=== PATIENT | male | born 1995 | race African-American/Black ===

== ENCOUNTER 2022-07-21 18:31 | Inpatient (IN) | payer OTHER ==
[~2022-07-21] VITALS: Ht 182.9 cm; Wt 109.0 kg
[2022-07-21] MEDS ORDERED: dilTIAZem 25 MG/5 ML VIAL IV ONE ×2 (18:43→18:45)
[2022-07-21] MEDS ORDERED: SODIUM CHLORIDE 0.9% 1,000 ML IV ONE (19:15)
[2022-07-21] MEDS ORDERED: ADENOSINE 6 MG/2 ML INJ IV ONE ×2 (19:15)
[2022-07-21] MEDS ORDERED: ASPirin 81 mg TAB PO ONE (19:15)
[2022-07-21] MEDS ORDERED: SODIUM CHLORIDE 0.9% 1,000 ML IVB ONE (19:15)
[2022-07-21 19:48] LABS: Basophils # (auto) 0.1 10 ^3/uL (0-0.2); Basophils % (auto) 0.4 % (0.0-2.0); Eosinophils # (auto) 0 10 ^3/uL (0-0.8); Eosinophils % (auto) 0.1 % (0.0-7.0); Hematocrit 46.2 % (41.0-53.0); Hemoglobin 15.5 g/dL (13.5-17.5); Lymphocytes # (auto) 1.2 10 ^3/uL (0.4-5.4); Lymphocytes % (auto) 5.9 % (10.0-50.0); Mean Corpuscular Hemoglobin 30.9 pg (28.0-32.0); Mean Corpuscular Hgb Conc. 33.6 g/dL (32.0-36.0); Monocytes # (auto) 0.9 10 ^3/uL (0-1.3); Monocytes % (auto) 4.1 % (0.0-12.0); Neutrophils # (auto) 18.7 10 ^3/uL (1.6-8.6); Neutrophils % (auto) 89.5 % (37.0-80.0); Nucleated Red Blood Cells % 0.2 %; Red Blood Cells 5.02 10^6/uL (4.5-5.90); Red Cell Distribution Width 12.9 % (11.8-14.3); White Blood Cell 20.9 10^3/uL (4.4-10.8)
[2022-07-21 20:18] LABS: Albumin 4.3 g/dL (3.4-5.0); BUN/Creatinine Ratio 7.9; Calcium 9.9 mg/dL (8.5-10.1); Magnesium 1.8 mg/dL (1.6-2.6); Potassium 3.5 mmol/L (3.5-5.1)
[2022-07-21 20:33] LABS: INR 0.96 (0.9-1.15); Partial Thromboplastin Time 25.1 sec (24.6-33.4)
[2022-07-21 20:37] LABS: Urine Bacteria FEW /hpf (None Seen); Urine Blood Negative /uL (Negative); Urine Hyaline Cast FEW /lpf (0 - 2); Urine Mucus FEW (None Seen); Urine Specific Gravity 1.008 (1.001-1.035); Urine WBC 1 /hpf (0 - 3)
[2022-07-21] MEDS ORDERED: ACETAMINOPHEN 325 MG TAB PO PRN (22:00)
[2022-07-21] MEDS ORDERED: TEMAZEPAM 15 MG CAP PO PRN (22:00)
[2022-07-21] MEDS ORDERED: MORPHINE SULFATE INJ 2 MG/ml SYRG IV PRN (22:00)
[2022-07-21] MEDS ORDERED: ONDANSETRON HCL 4 MG/2 ML VIAL IV PRN (22:00)
[2022-07-21] MEDS ORDERED: ATORVASTATIN 20 MG TAB PO SCH (22:00)
[2022-07-21] MEDS ORDERED: cefTRIAXone 1GM/50ML D5W 50 ML IV ONE (22:00)
[2022-07-21] MEDS ORDERED: NITROGLYCERIN 0.4 MG SL TAB SL PRN (22:00)
[2022-07-22 05:58] LABS: Basophils # (auto) 0 10 ^3/uL (0-0.2); Basophils % (auto) 0.2 % (0.0-2.0); Eosinophils # (auto) 0 10 ^3/uL (0-0.8); Eosinophils % (auto) 0.3 % (0.0-7.0); Hematocrit 41.6 % (41.0-53.0); Hemoglobin 13.8 g/dL (13.5-17.5); Lymphocytes # (auto) 2.7 10 ^3/uL (0.4-5.4); Lymphocytes % (auto) 23.3 % (10.0-50.0); Mean Corpuscular Hgb Conc. 33.1 g/dL (32.0-36.0); Mean Corpuscular Volume 93.5 fL (80.0-100.0); Monocytes # (auto) 1.1 10 ^3/uL (0-1.3); Neutrophils # (auto) 7.9 10 ^3/uL (1.6-8.6); Neutrophils % (auto) 67.2 % (37.0-80.0); Nucleated Red Blood Cells % 0.1 %; Red Blood Cells 4.45 10^6/uL (4.5-5.90); White Blood Cell 11.7 10^3/uL (4.4-10.8)
[2022-07-22 06:17] LABS: Calcium 9.3 mg/dL (8.5-10.1); Potassium 3.9 mmol/L (3.5-5.1)
[2022-07-22 06:22] LABS: BUN/Creatinine Ratio 11.2
[2022-07-22] MEDS ORDERED: MAGNESIUM SULFATE 1GM/100ML 100 ML IV ONE (09:30)
[2022-07-22 10:00] VITALS: BP 114/81
[2022-07-22] MEDS ORDERED: dilTIAZem 120MG ER CAP PO SCH (10:00)
[2022-07-22] MEDS ORDERED: ASPirin 81 mg TAB PO SCH (10:00)
[2022-07-22] MEDS ORDERED: DILT120C12 PO (11:35)
[2022-07-22] MEDS ORDERED: MAGN241.4 PO (11:35)
[2022-07-22] MEDS ORDERED: cefTRIAXone 1GM/50ML D5W 50 ML IV SCH (22:00)
[2022-07-23] MEDS ORDERED: MAGNESIUM OXIDE 400 MG TAB PO SCH (10:00)
== END 2022-07-22 11:50 | disposition home or self-care (01) | DRG 201 ==
LOC: ER 18:33 → TELE 21:52
PROVIDERS: ADMIT Nurse Practitioner; ATTEND Internal Medicine
DX: I47.1 Supraventricular tachycardia (principal); N17.0 Acute kidney failure with tubular necrosis; E66.9 Obesity, unspecified; E83.42 Hypomagnesemia; R65.10 Systemic inflammatory response syndrome (SIRS) of non-infectious origin without acute organ dysfunction; N39.0 Urinary tract infection, site not specified; Z20.822 Contact with and (suspected) exposure to COVID-19; Z68.32 Body mass index [BMI] 32.0-32.9, adult; I20.9 Angina pectoris, unspecified
CPT/HCPCS: 36415; 71045; 80048; 80053; 81001; 83735; 84443; 84484; 85025; 85379; 85610; 85730; 87040; 87426; 93005; 93306; 96361; 96365; 96367; 96375; G0378; J0153; J0696

== ENCOUNTER 2022-07-23 03:19 | Inpatient (IN) | payer OTHER ==
[~2022-07-23] VITALS: Ht 182.9 cm; Wt 112.8 kg
[~2022-07-23 03:19] MED LIST: DILT120C12 PO; MAGN241.4 PO
[2022-07-23] MEDS ORDERED: SODIUM CHLORIDE 0.9% 1,000 ML IV ONE (04:45)
[2022-07-23] MEDS ORDERED: CEFEPIME 1GM/ 50ML 50 ML IV ONE ×2 (04:45→12:30)
[2022-07-23] MEDS ORDERED: VANCOMYCIN 1GM/250ML 250 ML IV ONE ×2 (04:45→11:15)
[2022-07-23 06:51] LABS: Basophils # (auto) 0 10 ^3/uL (0-0.2); Basophils % (auto) 0.4 % (0.0-2.0); Eosinophils # (auto) 0.2 10 ^3/uL (0-0.8); Eosinophils % (auto) 1.7 % (0.0-7.0); Hematocrit 43.5 % (41.0-53.0); Lymphocytes # (auto) 2.6 10 ^3/uL (0.4-5.4); Lymphocytes % (auto) 28.6 % (10.0-50.0); Mean Corpuscular Hemoglobin 32.1 pg (28.0-32.0); Mean Corpuscular Hgb Conc. 34.4 g/dL (32.0-36.0); Mean Corpuscular Volume 93.3 fL (80.0-100.0); Monocytes # (auto) 0.8 10 ^3/uL (0-1.3); Monocytes % (auto) 8.3 % (0.0-12.0); Neutrophils # (auto) 5.6 10 ^3/uL (1.6-8.6); Red Blood Cells 4.66 10^6/uL (4.5-5.90); Red Cell Distribution Width 12.7 % (11.8-14.3); White Blood Cell 9.2 10^3/uL (4.4-10.8)
[2022-07-23 06:56] LABS: Albumin 4.2 g/dL (3.4-5.0); BUN/Creatinine Ratio 12.4; Calcium 9.5 mg/dL (8.5-10.1); Magnesium 2.2 mg/dL (1.6-2.6)
[2022-07-23 06:59] LABS: Bilirubin, Total 1.4 mg/dL (0.2-1.0); Phosphorus 3.1 mg/dL (2.5-4.90); Total Protein 7.9 g/dL (6.4-8.2)
[2022-07-23 07:26] LABS: INR 0.97 (0.9-1.15)
[2022-07-23] MEDS ORDERED: VANCOMYCIN PER PHARMACY 0 MG IV SCH (10:45)
[2022-07-23] MEDS: VANCOMYCIN 1GM/250ML 250 ML IV SCH ×2 (16:45→21:41)
[2022-07-23 18:23] LABS: Urine Blood Negative /uL (Negative); Urine Specific Gravity 1.011 (1.001-1.035)
[2022-07-24 01:04] VITALS: BP 128/74
[2022-07-24] MEDS: VANCOMYCIN 1GM/250ML 250 ML IV SCH (03:30)
[2022-07-24 05:00] VITALS: BP 118/70
[2022-07-24 06:22] LABS: Basophils # (auto) 0 10 ^3/uL (0-0.2); Basophils % (auto) 0.3 % (0.0-2.0); Eosinophils # (auto) 0.2 10 ^3/uL (0-0.8); Eosinophils % (auto) 2.1 % (0.0-7.0); Hematocrit 41.5 % (41.0-53.0); Hemoglobin 14.2 g/dL (13.5-17.5); Lymphocytes # (auto) 3.2 10 ^3/uL (0.4-5.4); Lymphocytes % (auto) 30.9 % (10.0-50.0); Mean Corpuscular Hemoglobin 31.6 pg (28.0-32.0); Mean Corpuscular Hgb Conc. 34.1 g/dL (32.0-36.0); Mean Corpuscular Volume 92.7 fL (80.0-100.0); Neutrophils # (auto) 5.9 10 ^3/uL (1.6-8.6); Neutrophils % (auto) 56.7 % (37.0-80.0); Nucleated Red Blood Cells % 0.1 %; Red Blood Cells 4.48 10^6/uL (4.5-5.90); Red Cell Distribution Width 12.3 % (11.8-14.3); White Blood Cell 10.4 10^3/uL (4.4-10.8)
[2022-07-24 06:31] LABS: Albumin 3.9 g/dL (3.4-5.0); Calcium 9.4 mg/dL (8.5-10.1)
[2022-07-24 06:37] LABS: Bilirubin, Total 1.1 mg/dL (0.2-1.0); Potassium 3.7 mmol/L (3.5-5.1)
[2022-07-24 07:50] LABS: BUN/Creatinine Ratio 14.7
[2022-07-24 08:25] VITALS: BP 94/53
[2022-07-24 08:37] VITALS: BP 94/53
[2022-07-24 11:23] VITALS: BP 94/53
[2022-07-24 12:30] VITALS: BP 115/85
== END 2022-07-24 14:13 | disposition home or self-care (01) | DRG 201 ==
LOC: ER 03:19 → OVERFLOW 10:42 → CENTRAL 23:32
PROVIDERS: ADMIT Registered Nurse; ATTEND Internal Medicine
DX: I47.1 Supraventricular tachycardia (principal); E66.01 Morbid (severe) obesity due to excess calories; N18.9 Chronic kidney disease, unspecified; Z68.33 Body mass index [BMI] 33.0-33.9, adult; Z71.3 Dietary counseling and surveillance; Z20.822 Contact with and (suspected) exposure to COVID-19
CPT/HCPCS: 36415; 71045; 80053; 80202; 81003; 83605; 83690; 83735; 84100; 84484; 85025; 85610; 87040; 87081; 87426; 96365; 96366; 96367; 96375; G0378

== ENCOUNTER 2022-10-19 20:45 | Emergency (ER) | payer OTHER ==
[~2022-10-19] VITALS: Ht 182.9 cm; Wt 113.0 kg
[2022-10-19] MEDS ORDERED: ACETAMINOPHEN 325 MG TAB PO ONE (21:15)
[2022-10-19] MEDS ORDERED: SODIUM CHLORIDE 0.9% 1,000 ML IV ONE (21:15)
[2022-10-19 22:11] LABS: Basophils # (auto) 0.1 10 ^3/uL (0-0.2); Basophils % (auto) 0.4 % (0.0-2.0); Eosinophils # (auto) 0 10 ^3/uL (0-0.8); Eosinophils % (auto) 0.1 % (0.0-7.0); Hematocrit 43.2 % (41.0-53.0); Hemoglobin 14.5 g/dL (13.5-17.5); Lymphocytes # (auto) 1.2 10 ^3/uL (0.4-5.4); Lymphocytes % (auto) 7.1 % (10.0-50.0); Mean Corpuscular Hemoglobin 31.5 pg (28.0-32.0); Mean Corpuscular Hgb Conc. 33.7 g/dL (32.0-36.0); Mean Corpuscular Volume 93.3 fL (80.0-100.0); Monocytes # (auto) 2.9 10 ^3/uL (0-1.3); Monocytes % (auto) 17.1 % (0.0-12.0); Neutrophils # (auto) 12.9 10 ^3/uL (1.6-8.6); Neutrophils % (auto) 75.3 % (37.0-80.0); Nucleated Red Blood Cells % 0.3 %; Red Blood Cells 4.62 10^6/uL (4.5-5.90); Red Cell Distribution Width 12.5 % (11.8-14.3); White Blood Cell 17.1 10^3/uL (4.4-10.8)
[2022-10-19 22:27] LABS: Albumin 3.7 g/dL (3.4-5.0); BUN/Creatinine Ratio 15.8; Calcium 8.9 mg/dL (8.5-10.1); Potassium 3.9 mmol/L (3.5-5.1)
[2022-10-19 22:29] LABS: Bilirubin, Total 1.3 mg/dL (0.2-1.0); Total Protein 7.4 g/dL (6.4-8.2)
[2022-10-20] MEDS ORDERED: DexAMETHasone SOD PHOS 10MG/1ML VIAL INJ IV ONE (01:00)
[2022-10-20] MEDS ORDERED: CLINDAMYCIN 900MG IV 50 ML IV ONE (01:00)
[2022-10-20] MEDS ORDERED: KETOROLAC TROMETH 30 MG/ML 1ML VIAL IV ONE (01:00)
[2022-10-20] MEDS ORDERED: LACTATED RINGER S IV ONE (01:00)
[2022-10-20] MEDS ORDERED: PIPERACILLIN-TAZOB 3.375GM 100 ML IV ONE (01:00)
[2022-10-20] MEDS ORDERED: IOHEXOL 300 MG/ML 100ML BOTTLE IJ ONE (01:19)
[2022-10-20] MEDS ORDERED: AUG875T PO (07:50)
[2022-10-20] MEDS ORDERED: CLIN300C8 PO (07:50)
[2022-10-20 07:52] VITALS: BP 112/71
== END 2022-10-20 07:52 | disposition home or self-care (01) ==
LOC: ER 20:45
DX: J02.9 Acute pharyngitis, unspecified (principal); D72.829 Elevated white blood cell count, unspecified; I88.9 Nonspecific lymphadenitis, unspecified; R06.02 Shortness of breath; R94.31 Abnormal electrocardiogram [ECG] [EKG]; M54.2 Cervicalgia; Z20.822 Contact with and (suspected) exposure to COVID-19; Z88.1 Allergy status to other antibiotic agents
CPT/HCPCS: 36415; 70491; 71045; 80053; 83605; 83690; 83880; 84484; 85025; 87426; 93005; 96361; 96365; 96367; 96375; 99285; J1100; J1885; J2543; J3490; J7030; Q9967

== ENCOUNTER 2024-07-23 02:48 | Inpatient (IN) | payer MEDICAID, OTHER ==
[~2024-07-23] VITALS: Ht 188 cm; Wt 68.2 kg
[~2024-07-23 02:48] MED LIST changes: +AUG875T PO; +CLIN1CAP70 PO
[2024-07-23 03:15] VITALS: PULSE 172; RESP 15; O2SAT 99
[2024-07-23] MEDS: ADENOSINE 6 MG/2 ML INJ IV ONE ×3 (03:20→03:30)
[2024-07-23] MEDS: dilTIAZem 25 MG/5 ML VIAL IV ONE (03:33)
--- NOTE | 2024-07-23 03:33 | ED.PDOC ---
HPI Comments 29-year-old male who came to ER due to shortness of breath. Patient diagnosed to have SVTs ( Jul 2022), and is on diltiazem. Patient was asleep earlier when he woke up suddenly due to sudden onset shortness of breath and palpitations. Patient brought to the ER, the blood pressure of 141/86 mm Hg, tachycardic at 140's and was saturating at 98% on room air. EKG done shows Afib in RVR. Chief Complaint: Shortness of Breath Time Seen by MD: 03:32 Primary Care Provider: KAYCEE Reviewed Notes: Nurses Notes Allergies: Coded Allergies: NO KNOWN ALLERGIES (Unverified , 07/21/22) Home Meds Active Scripts Clindamycin Hcl (Clindamycin Hcl) 300 Mg Cap, 300 MG PO QID for 10 Days, #40 CAP 0 Refills Prov:VICTORIA OSORIO DO 10/20/22 Amoxicillin & Pot Clavulanate (AUGMENTIN TABLET) 875 Mg Tb, 875 MG PO BID for 10 Days, #20 TAB 0 Refills Prov:VICTORIA OSORIO DO 10/20/22 Magnesium Oxide (Mag-Ox) 400 Mg Tb, 400 MG PO BID for 30 Days, #60 TAB 2 Refills Prov:FREDERICK ROACH MD 07/22/22 Diltiazem Hcl (Cardizem La) 120 Mg Cp, 120 MG PO DAILY for 30 Days, #30 CAP 1 Refill Prov:FREDERICK ROACH MD 07/22/22 Information Source: Patient Mode of Arrival: Ambulatory Severity: Moderate Timing: Minutes Duration: Since onset Prehospital treatment: None Quality: Other (Palpitations) Onset: At Rest Cardiac Risk Factors: Other (SVTs) History of: Similar pain in past Associated Signs and Symptoms: SOB, Palpitations Past Medical History Past Medical History (Other): SVTs Surgical History: Denies all surgeries Family History Family History: Reviewed,noncontributory to illness Social History Smoker: Non-Smoker Alcohol: Denies ETOH Use Drugs: Denies Drug Use Lives In: Home Constitutional: denies: chills, diaphoresis, fatigue, fever, malaise, sweats, weakness, others EENTM: denies: blurred vision, double vision, ear bleeding, ear discharge, ear drainage, ear pain, ear ringing, eye pain, eye redness, hearing loss, mouth pain, mouth swelling, nasal discharge, nose bleeding, nose congestion, nose pain, photophobia, tearing, throat pain, throat swelling, voice changes, others Respiratory: reports: SOB at rest; denies: cough, hemoptysis, orthopnea, shortness of breath, SOB with excertion, stridor, wheezing, others Cardiovascular: reports: palpitations; denies: chest pain, dizzy spells, diaphoresis, Dyspnea on exertion, edema, irregular heart beat, left arm pain, lightheadedness, PND, syncope, others Gastrointestinal: denies: abdomen distended, abdominal pain, blood streaked bowels, constipated, diarrhea, dysphagia, difficulty swallowing, hematemesis, melena, nausea, poor appetite, poor fluid intake, rectal bleeding, rectal pain, vomiting, others Genitourinary: denies: burning, dysuria, flank pain, frequency, hematuria, incontinence, penile discharge, penile sore, pain, testicle pain, testicle swelling, urgency, others Neurological: denies: dizziness, fainting, headache, left sided numbness, left sided weakness, numbness, paresthesia, pre-existing deficit, right sided numbness, right sided weakness, seizure, speech problems, tingling, tremors, weakness, others Musculoskeletal: denies: back pain, gout, joint pain, joint swelling, muscle pain, muscle stiffness, neck pain, others Integumetry: denies: bruises, change in color, change in hair/nails, dryness, laceration, lesions, lumps, rash, wounds, others Allergic/Immunocompromised: denies: Difficulty Healing, Frequent Infections, Hives, Itching, others Hematologic/Lymphatic: denies: anemia, blood clots, easy bleeding, easy bruising, swollen glands, others Endocrine: denies: excessive hunger, excessive sweating, excessive thirst, excessive urination, flushing, intolerance to cold, intolerance to heat, unexplained weight gain, unexplained weight loss, others Psychiatric: denies: anxiety, bipolar disorder, depression, hopeless, panic disorder, schizophrenia, sleepless, suicidal, others Physical Exam General Appearance: No Apparent Distress, Normal HEENT: Normal ENT Inspection, Pharynx Normal, TMs Normal Neck: Full Range of Motion, Non-Tender, Normal, Normal Inspection Respiratory: Chest Non-Tender, Lungs Clear, No Accessory Muscle Use, No Respiratory Distress, Normal Breath Sounds Cardiovascular: No Edema, No JVD, No Murmur, No Gallop, Normal Peripheral Pulses, Regular Rate/Rhythm Breast Exam: Deferred Gastrointestinal: No Organomegaly, Non Tender, No Pulsatile Mass, Normal Bowel Sounds, Soft Genitalia: Deferred Pelvic: Deferred Rectal: Deferred Extremities: No calf tenderness, Normal capillary refill, Normal inspection, Normal range of motion, Non-tender, No pedal edema Musculoskeletal : Apperance: Normal Neurologic: Alert, frit coater II-XII nml as Tested, No Motor Deficits, Normal Affect, Normal Mood, No Sensory Deficits Cerebellar Function: Normal Reflexes: Normal Skin: Dry, Normal Color, Warm Lymphatic: No Adenopathy EKG EKG : Pulse Rate (adult): 155 Cardiac Rhythm: Afib Was a procedure done? Was a procedure done?: No CP Differential Dx Differential Diagnosis: A-fib, Angina, Anxiety / Panic Attack, Electrolyte Disorder, Hyperventilation, PSVT, Sinus Tachycardia X-Ray, Labs, Meds, VS Vital Signs Date Time Temp Pulse Resp B/P (MAP) Pulse Ox O2 Delivery O2 Flow Rate FiO2 07/23/24 04:04 112 07/23/24 03:35 145/85 07/23/24 03:35 155 07/23/24 03:33 148 07/23/24 03:20 155 07/23/24 03:01 148 07/23/24 02:48 97.8 148 18 141/89 (106) 99 Lab Test 07/23/24 04:02 07/23/24 03:56 Range/Units Urine Color Pending Urine Clarity Pending Urine pH Pending Urine Specific [place] Pending Urine Protein Pending Urine Ketones Pending Urine Blood Pending Urine Nitrite Pending Urine Bilirubin Pending Urine Urobilinogen Pending Urine Leukocyte Esterase Pending Urine RBC Pending Urine WBC Pending Urine Squamous Epithelial Cells Pending Urine Bacteria Pending Urine Glucose Pending Urine Opiates Screen Pending Urine Fentanyl Screen Pending Urine Barbiturates Screen Pending Urine Phencyclidine Screen Pending Urine Amphetamines Screen Pending Urine Benzodiazepines Screen Pending Urine Cocaine Screen Pending Urine Cannabinoids Screen Pending White Blood Count 9.8 4.4-10.8 10^3/uL Red Blood Count 5.01 4.5-5.90 10^6/uL Hemoglobin 16.2 13.5-17.5 g/dL Hematocrit 46.7 41.0-53.0 % Mean Corpuscular Volume 93.3 80.0-100.0 fL Mean Corpuscular Hemoglobin 32.4 H 28.0-32.0 pg Mean Corpuscular Hemoglobin Concent 34.8 32.0-36.0 g/dL Red Cell Distribution Width 12.7 11.8-14.3 % Platelet Count 296 140-450 10^3/uL Mean Platelet Volume 7.2 6.9-10.8 fL Neutrophils (%) (Auto) 57.5 37.0-80.0 % Lymphocytes (%) (Auto) 30.4 10.0-50.0 % Monocytes (%) (Auto) 8.6 0.0-12.0 % Eosinophils (%) (Auto) 2.5 0.0-7.0 % Basophils (%) (Auto) 1.0 0.0-2.0 % Neutrophils # (Auto) 5.6 1.6-8.6 10 ^3/uL Lymphocytes # (Auto) 3.0 0.4-5.4 10 ^3/uL Monocytes # (Auto) 0.8 0-1.3 10 ^3/uL Eosinophils # (Auto) 0.2 0-0.8 10 ^3/uL Basophils # (Auto) 0.1 0-0.2 10 ^3/uL Nucleated Red Blood Cells 0.1 % Prothrombin Time Pending Prothrombin Time INR Pending Sodium Level Pending Potassium Level Pending Chloride Level Pending Carbon Dioxide Level Pending Anion Gap Pending Blood Urea Nitrogen Pending Creatinine Pending Glomerular Filtration Rate Calc Pending BUN/Creatinine Ratio Pending Serum Glucose Pending Calcium Level Pending Total Bilirubin Pending Aspartate Amino Transferase (AST) Pending Alanine Aminotransferase (ALT) Pending Alkaline Phosphatase Pending Troponin I High Sensitivity Pending Total Protein Pending Albumin Pending Thyroid Stimulating Hormone (TSH) Pending Free Thyroxine (T4) Calculated Pending Plasma/Serum Blood Alcohol Pending Current Medications Medications (Trade) Dose Ordered Sig/Sondra Route Start Time Stop Time Status Last Admin Adenosine (Adenosine) 6 mg ONCE ONCE IV 07/23/24 03:15 07/23/24 03:16 DC 07/23/24 03:20 Diltiazem HCl (Cardizem Injection) 20 mg ONCE ONCE IV 07/23/24 03:30 07/23/24 03:31 DC 07/23/24 03:33 Diltiazem HCl 125 ml @ 5 mls/hr Q24H ONCE IV 07/23/24 03:30 07/24/24 03:29 07/23/24 03:35 Adenosine (Adenosine) 12 mg ONCE ONCE IV 07/23/24 03:30 07/23/24 03:31 DC 07/23/24 03:30 Time of 1ST Reevaluation: 03:27 Reevaluation 1ST: Unchanged Time of 2ND Reevaluation: 04:20 (on diltiazem drip, heart rate improved and symptoms improved) Reevaluation 2ND: Improved Patient Education/Counseling: Diagnosis, Treatment Family Education/Counseling: Diagnosis, Treatment Departure 1 Departure Time of Disposition: 04:20 Impression: Primary Impression: Atrial fibrillation with rapid ventricular response Disposition: ADMITTED INPATIENT Admit to: Tele Condition: Guarded Critical Care Note Critical Care Time?: Yes (35 min-critical care time only) Critical care comment: Total critical care time: Approximately 36 minutes Due to a high probability of clinically significant, life threatening deterioration, the patient required my highest level of preparedness to intervene emergently and I personally spent this critical care time directly and personally managing the patient. This critical care time included obtaining a history; examining the patient; pulse oximetry; ordering and review of studies; arranging urgent treatment with development of a management plan; evaluation of patient's response to treatment; frequent reassessment; and, discussions with other providers. This critical care time was performed to assess and manage the high probability of imminent, life-threatening deterioration that could result in multi-organ failure. It was exclusive of separately billable procedures and treating other patients. Stability Stability form required: No Heart Score Heart Score: Heart Score Response (Comments) Value History Moderate Suspicious 1 EKG Repolarization Disturb 1 Age <45 0 Risk Factors 1 or 2 risk factors 1 Troponin Normal limit 0 Total 3 I personally scribed for GERRI GLORIA MD ([email or web address]) on 07/23/24 at 03:33. Electronically submitted by Denys Esparza ([email or web address]). I personally scribed for GERRI GLORIA MD ([email or web address]) on 07/23/24 at 03:35. Electronically submitted by Denys Esparza ([email or web address]). GERRI GLORIA MD Jul 23, 2024 03:33
[2024-07-23] MEDS: dilTIAZem 125mg/125ml BAG KIT 125 ML IV ONE (03:35)
--- NOTE | 2024-07-23 04:02 | DVH ---
CHEST RADIOGRAPH Indication: chest pain Technique: Single frontal view of the chest was obtained Comparison: XY CHEST PORTABLE on DOS: 10/19/22, CHEST XRAY 1 VIEW on DOS: 07/23/22, CXR1 on DOS: 07/23, CHEST PORTABLE on DOS: 07/21/22, CXRP on DOS: 07/21/22 FINDINGS: Lines and Tubes: None Lungs: No focal consolidation. Pleura: No effusion. No pneumothorax. Cardiomediastinal contours: Unremarkable Bones: No acute osseous abnormality. IMPRESSION: No acute cardiopulmonary disease.
[2024-07-23 04:10] LABS: Basophils # (auto) 0.1 10 ^3/uL (0-0.2); Eosinophils # (auto) 0.2 10 ^3/uL (0-0.8); Eosinophils % (auto) 2.5 % (0.0-7.0); Hematocrit 46.7 % (41.0-53.0); Hemoglobin 16.2 g/dL (13.5-17.5); Lymphocytes % (auto) 30.4 % (10.0-50.0); Mean Corpuscular Hemoglobin 32.4 pg (28.0-32.0); Mean Corpuscular Hgb Conc. 34.8 g/dL (32.0-36.0); Mean Corpuscular Volume 93.3 fL (80.0-100.0); Monocytes # (auto) 0.8 10 ^3/uL (0-1.3); Monocytes % (auto) 8.6 % (0.0-12.0); Neutrophils # (auto) 5.6 10 ^3/uL (1.6-8.6); Neutrophils % (auto) 57.5 % (37.0-80.0); Nucleated Red Blood Cells % 0.1 %; Platelet Count (auto) 296 10^3/uL (140-450); Red Blood Cells 5.01 10^6/uL (4.5-5.90); Red Cell Distribution Width 12.7 % (11.8-14.3); White Blood Cell 9.8 10^3/uL (4.4-10.8)
[2024-07-23 04:19] LABS: Urine Bacteria None Seen /hpf (None Seen)
[2024-07-23 04:24] LABS: INR 0.98 (0.9-1.15); Prothrombin Time 10.4 sec (9.3-11.8)
[2024-07-23 04:29] LABS: Albumin 4.8 g/dL (3.2-4.8); Alkaline Phosphatase 80 U/L (46-116); Anion Gap 9 (5-15); Aspartate Aminotransferase 40 U/L (13-40); BUN/Creatinine Ratio 9.9 (10.0-20.0); Blood Urea Nitrogen 12 mg/dL (9-23); Calcium 10.1 mg/dL (8.7-10.4); Carbon Dioxide 24 mmol/L (20-31); Potassium 3.7 mmol/L (3.5-5.1); Sodium 140 mmol/L (136-145)
[2024-07-23 04:30] LABS: Total Protein 7.6 g/dL (5.7-8.2)
[2024-07-23 04:32] LABS: Urine Blood Negative /uL (Negative); Urine Clarity Clear (Clear); Urine Color Light-Yellow (Yellow); Urine Protein, UAD Negative (Negative); Urine Specific Gravity 1.015 (1.001-1.035); Urine Urobilinogen Normal (Negative); Urine WBC 1 /hpf (0 - 3); Urine pH 5.5 (5.0-9.0)
[2024-07-23 04:37] LABS: Alanine Aminotransferase 90 U/L (7-40); Blood Alcohol < 3.0 mg/dL (<10); Chloride 107 mmol/L (98-107); Glucose 139 mg/dL (74-106)
[2024-07-23 04:43] LABS: Amphetamine Screen, Urine Neg (NEGATIVE); Barbiturate Scree,Urine Neg (NEGATIVE); Benzodiazephine Screen, Urine Neg (NEGATIVE); Cannabinoid Screen, Urine Neg (NEGATIVE); Cocaine Screen, Urine Neg (NEGATIVE); Opiate Scree,Urine Neg (NEGATIVE); Phencyclidine Screen, Urine Neg (NEGATIVE)
[2024-07-23 04:46] LABS: Bilirubin, Total 0.9 mg/dL (0.2-1.0)
[2024-07-23] MEDS ORDERED: MORPHINE SULFATE INJ 2 MG/ml SYRG IV PRN (05:00)
[2024-07-23] MEDS ORDERED: ACETAMINOPHEN 325 MG TAB PO PRN (05:00)
[2024-07-23] MEDS ORDERED: NITROGLYCERIN 0.4 MG SL TAB SL PRN (05:00)
[2024-07-23] MEDS ORDERED: ONDANSETRON HCL 4 MG/2 ML VIAL IV PRN (05:00)
[2024-07-23] MEDS ORDERED: POTASSIUM CHLORIDE 40 MEQ, LIDOCAINE 1% (LOCAL ANESTH.) 4 ML in SODIUM CHL 0.9% 250 ML IV ONE (05:15)
--- NOTE | 2024-07-23 05:19 | DVHHPRES ---
History of Present Illness Resident Creating Document: DONNELL HO RESIDENT History of Present Illness This is a 29 years old male with past medical history of SVT presented to the ED with a chief complaint of shortness of breath and palpitation for 2 hours prior to this admission. According to the patient he woke up from the sleep at 2:30 a.m. with gasping of air and also feeling heart racing which prompted this visit. The patient also mentioned 2 years ago he was admitted in [facility] with SVT. He denies chest pain, dizziness, diaphoresis, abdominal pain, nausea, vomiting, dysuria, cough with sputum, sick contact or any recent traveling. He has no insurance and he is not following with any PCP or manager behavior. Past Medical History SVT Past Surgical History None Family History: None Lives: with Family Past Social History Lives with family Nonsmoker, nonalcoholic and never tried any drugs. Review of Systems Constitutional: No: Fever, Chills, Sweats, Weakness, Malaise, Other Eyes: No: Pain, Vision change, Conjunctivae inflammation, Eyelid inflammation, Other, Redness ENT: No: Ear pain, Ear discharge, Nose pain, Nose discharge, Nose congestion, Mouth pain, Mouth swelling, Throat pain, Throat swelling, Other Respiratory: Shortness of breath; No: Cough, Dry, SOB with excertion, Wheezing, Hemoptysis, Pleuritic Pain, Sputum, Wheezing, Other Cardiovascular: Palpitations; No: Chest Pain, Orthopnea, Paroxysmal Noc. Dyspnea, Edema, Lt Headedness, Other Gastrointestinal: No: Nausea, Vomiting, Abdominal Pain, Diarrhea, Constipation, Melena, Hematochezia, Other Genitourinary: No Dysuria, No Frequency, No Incontinence, No Hematuria, No Retention, No Other Musculoskeletal: No: other, neck pain, shoulder pain, arm pain, back pain, hand pain, leg pain, foot pain Skin: No: Rash, Lesions, Jaundice, Bruising, Other Neurological: No: Weakness, Numbness, Incoordination, Change in speech, Confus ion, Seizures, Other Allergies: Coded Allergies: NO KNOWN ALLERGIES (Unverified , 07/21/22) Medications Current Medications Medications Dose Ordered Sig/Sondra Route Start Time Stop Time Status Last Admin Dose Admin Sodium Chloride 10 ml Q8HR IV 07/23/24 06:00 UNV Ondansetron HCl 4 mg Q4HP PRN IV 07/23/24 05:00 UNV Acetaminophen 650 mg Q6HP PRN PO 07/23/24 05:00 UNV Nitroglycerin 0.4 mg Q5MINP PRN SL 07/23/24 05:00 UNV Morphine Sulfate 2 mg Q30M PRN IV 07/23/24 05:00 UNV Exam Vital Signs Vital Signs Date Time Temp Pulse Resp B/P (MAP) Pulse Ox O2 Delivery O2 Flow Rate FiO2 07/23/24 04:45 115 13 145/92 (109) 96 07/23/24 03:15 Room Air* 0 21 07/23/24 03:15 98.9 98.9 Exam Physical examination: General Appearance: Alert, Oriented X3, Cooperative, No acute distress HEENT: Atraumatic, PERRLA, EOMI, Mucous membrane moist/pink Respiratory: Clear to auscultation, Normal air movement Cardiovascular: Irregular regular rate, Normal S1, Normal S2, No murmurs, no joanie st wall tenderness Abdominal: Normal bowel sounds, Soft, No tenderness, No hepatospenomegaly, No masses Extremities: No clubbing, No cyanosis, No edema, Normal pulses, No tenderness/swelling Skin: No rashes, No breakdown, No significant lesion Neuro: Normal gait, Normal speech, Strength at 5/5 X4 ext, Normal tone, Sensation intact, grossly intact cranial nerves. Psych/Mental Status: Mental status NL, Mood NL Labs/Xrays Labs Test 07/23/24 04:48 07/23/24 04:02 07/23/24 03:56 Range/Units Urine Color Light-yellow Yellow Urine Clarity Clear Clear Urine pH 5.5 5.0-9.0 Urine Specific [place] 1.015 1.001-1.035 Urine Protein Negative Negative Urine Ketones Negative Negative Urine Blood Negative Negative /uL Urine Nitrite Negative Negative Urine Bilirubin Negative Negative Urine Urobilinogen Normal Negative mg/dL Urine Leukocyte Esterase Negative Negative /uL Urine RBC <1 0 - 3 /hpf Urine WBC 1 0 - 3 /hpf Urine Squamous Epithelial Cells Few <5 /hpf Urine Bacteria None seen None Seen /hpf Urine Glucose Normal Normal mg/dL Urine Opiates Screen Neg NEGATIVE Urine Fentanyl Screen Neg NEGATIVE Urine Barbiturates Screen Neg NEGATIVE Urine Phencyclidine Screen Neg NEGATIVE Urine Amphetamines Screen Neg NEGATIVE Urine Benzodiazepines Screen Neg NEGATIVE Urine Cocaine Screen Neg NEGATIVE Urine Cannabinoids Screen Neg NEGATIVE White Blood Count 9.8 4.4-10.8 10^3/uL Red Blood Count 5.01 4.5-5.90 10^6/uL Hemoglobin 16.2 13.5-17.5 g/dL Hematocrit 46.7 41.0-53.0 % Mean Corpuscular Volume 93.3 80.0-100.0 fL Mean Corpuscular Hemoglobin 32.4 H 28.0-32.0 pg Mean Corpuscular Hemoglobin Concent 34.8 32.0-36.0 g/dL Red Cell Distribution Width 12.7 11.8-14.3 % Platelet Count 296 140-450 10^3/uL Mean Platelet Volume 7.2 6.9-10.8 fL Neutrophils (%) (Auto) 57.5 37.0-80.0 % Lymphocytes (%) (Auto) 30.4 10.0-50.0 % Monocytes (%) (Auto) 8.6 0.0-12.0 % Eosinophils (%) (Auto) 2.5 0.0-7.0 % Basophils (%) (Auto) 1.0 0.0-2.0 % Neutrophils # (Auto) 5.6 1.6-8.6 10 ^3/uL Lymphocytes # (Auto) 3.0 0.4-5.4 10 ^3/uL Monocytes # (Auto) 0.8 0-1.3 10 ^3/uL Eosinophils # (Auto) 0.2 0-0.8 10 ^3/uL Basophils # (Auto) 0.1 0-0.2 10 ^3/uL Nucleated Red Blood Cells 0.1 % Prothrombin Time 10.4 9.3-11.8 sec Prothrombin Time INR 0.98 0.9-1.15 Sodium Level 140 136-145 mmol/L Potassium Level 3.7 3.5-5.1 mmol/L Chloride Level 107 98-107 mmol/L Carbon Dioxide Level 24 20-31 mmol/L Anion Gap 9 5-15 Blood Urea Nitrogen 12 9-23 mg/dL Creatinine 1.21 0.700-1.30 mg/dL Glomerular Filtration Rate Calc 82 >90 mL/min BUN/Creatinine Ratio 9.9 L 10.0-20.0 Serum Glucose 139 H 74-106 mg/dL Calcium Level 10.1 8.7-10.4 mg/dL Total Bilirubin 0.9 0.2-1.0 mg/dL Aspartate Amino Transferase (AST) 40 13-40 U/L Alanine Aminotransferase (ALT) 90 H 7-40 U/L Alkaline Phosphatase 80 46-116 U/L Total Protein 7.6 5.7-8.2 g/dL Albumin 4.8 3.2-4.8 g/dL Thyroid Stimulating Hormone (TSH) 4.25 0.55-4.78 uIU/mL Free Thyroxine (T4) Calculated 1.19 0.89-1.76 ng/dL Plasma/Serum Blood Alcohol < 3.0 <10 mg/dL Assessment/Plan Assessment/Plan Assessment and plan: # Atrial fibrillation with rapid ventricular response - IV Diltiazem @5 mg/hr protocol - Admitted the patient in ICU status - Troponins are unremarkable - TSH is normal - Ordered echo and magnesium - IV potassium 40 mEq to keep the potassium above 4 - [id number] score 1 and risk of stroke<2% - Consulted cardiology # Hypertensive heart disease - Patient is on IV diltiazem - Monitor Blood pressure closely. # Transaminitis without hyperbilirubinemia - Monitor CMP # DVT prophylaxis - Lovenox 40 mg sc daily Goal of care discussed with the patient for more than 17 minutes full code Plan of treatment discussed with Dr. Barcenas Plan discussed with: Patient, Other My Orders Orders - DONNELL HO RESIDENT Procedure Category Date Status Time Admit ADMIT 07/23/24 Transmitted 05:00 Code Status CODE 07/23/24 Transmitted 05:00 Sodium Chloride Lock PHA 07/23/24 Logged (Saline Lock Ns) 06:00 Ondansetron Hcl PHA 07/23/24 Logged (Zofran) 05:00 Cardiac DIET 07/23/24 Transmitted Diet-2gna,Lofat,Lochol Breakfast Echo 2d Mode Cardiac US 07/23/24 Logged DOP 05:00 Acetaminophen Tablet PHA 07/23/24 Logged (Tylenol Tablet) 05:00 Nitroglycerin PHA 07/23/24 Logged Sublingual (Ntrostat 05:00 Morphine Sulfate PHA 07/23/24 Logged Injection 05:00 Oxygen By Nasal RT 07/23/24 Transmitted Cannula 05:00 Stat Ekg For Chest BABAR 07/23/24 In Process Pain 05:00 Notify Of Changes BABAR 07/23/24 In Process From Base 05:00 Grants Assistant For [facility] 07/23/24 In Process 24 Hours 05:00 Emergency Dysrhythmia [facility] 07/23/24 In Process Protocol 05:00 Rhythm Strips Once [facility] 07/23/24 In Process Every Shift 05:00 Magnesium LAB 07/23/24 Logged 05:10 Potassium Chloride PHA 07/23/24 Logged (Potassium Chloride). 05:15 Enoxaparin Sodium PHA 07/23/24 Transmitted (Lovenox) 10:00 Date of Service: Jul 23, 2024 Billing Provider: FUAD BARCENAS MD Common Visit Codes: [id number] INP/OBS CARE (HIGH) DONNELL HO RESIDENT Jul 23, 2024 05:19 FUAD BARCENAS MD Jul 23, 2024 21:04
[2024-07-23] MEDS: POTASSIUM CHL 20MEQ/100ML 100 ML IV SCH (05:39)
[2024-07-23] MEDS: SODIUM CHLOR 0.9% PF (SALINE LOCK) 10ML VIAL/SYR IV SCH (06:00)
--- NOTE | 2024-07-23 06:35 | ECG ---
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
--- NOTE | 2024-07-23 06:50 | ECG ---
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
[2024-07-23 08:00] VITALS: PULSE 95; RESP 12; O2SAT 98
[2024-07-23] MEDS: ENOXAPARIN SOD 40 MG/0.4 ML SYRINGE SC SCH (10:01)
[2024-07-23 10:16] LABS: Triglycerides 133 mg/dL (< 150)
[2024-07-23 10:18] LABS: Cholesterol 168 mg/dL (< 200)
[2024-07-23 10:28] LABS: HDL Cholesterol 40 mg/dL (40-59); LDL Cholesterol 114 mg/dL (< 100)
[2024-07-23] MEDS: AMIODARONE 450mg/250ml AE 250 ML IV SCH ×3 (11:51→19:30)
[2024-07-23] MEDS: METOPROLOL SUCCINATE XL 50 MG TAB PO ONE (11:55)
--- NOTE | 2024-07-23 12:01 | DVHCONRES ---
Date Seen: Jul 23, 2024 Resident Creating Document: OSKAR JUAN RESIDENT Referring Physician Dr. Stroud Reason for Consultation AFib History of Present Illness Wilian Sesay is a 29 years old male with PMH of SVT presented to the ED with a chief complaint of shortness of breath and palpitation for 2:30 am on the day of admission. Patient reported that he woke up from sleep at 2:30 a.m. with gasping of air and also feeling heart racing which prompted this visit. The patient also mentioned 2 years ago he was admitted in [facility] with SVT. He denies chest pain, dizziness, diaphoresis, abdominal pain, nausea, vomiting, dysuria, cough with sputum, sick contact or any recent traveling. 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 Past Medical History 1 episode of SVT 1 year ago Past Surgical History Denies Family History: Chronic obstructive pulmonary disease G8 FATHER FH: breast cancer G8 MOTHER FH: lupus G8 MOTHER FHx: bipolar disorder G8 MOTHER Hypertension G8 FATHER Family History Heart disease in father Social History Lives with the . Denies smoking, alcohol and other drug Allergies: Coded Allergies: NO KNOWN ALLERGIES (Unverified , 07/21/22) Home Meds Active Scripts Clindamycin Hcl (Clindamycin Hcl) 300 Mg Cap, 300 MG PO QID for 10 Days, #40 CAP 0 Refills Prov:VICTORIA OSORIO DO 10/20/22 Amoxicillin & Pot Clavulanate (AUGMENTIN TABLET) 875 Mg Tb, 875 MG PO BID for 10 Days, #20 TAB 0 Refills Prov:VICTORIA OSORIO DO 10/20/22 Magnesium Oxide (Mag-Ox) 400 Mg Tb, 400 MG PO BID for 30 Days, #60 TAB 2 Refills Prov:FREDERICK ROACH MD 07/22/22 Diltiazem Hcl (Cardizem La) 120 Mg Cp, 120 MG PO DAILY for 30 Days, #30 CAP 1 Refill Prov:FREDERICK ROACH MD 07/22/22 Current Medications Current Medications Medications (Trade) Dose Ordered Sig/Sondra Route PRN Reason Start Time Stop Time Status Last Admin Sodium Chloride (Saline Lock Ns) 10 ml Q8HR IV 07/23/24 06:00 Ondansetron HCl (Zofran) 4 mg Q4HP PRN IV NAUSEA / VOMITING 07/23/24 05:00 Acetaminophen (Tylenol Tablet) 650 mg Q6HP PRN PO PAIN SCALE 1-3 OR TEMP>100.4 07/23/24 05:00 Nitroglycerin (Ntrostat Sublingual) 0.4 mg Q5MINP PRN SL FOR CHEST PAIN 07/23/24 05:00 Morphine Sulfate 2 mg Q30M PRN IV FOR CHEST PAIN 07/23/24 05:00 Enoxaparin Sodium (Lovenox) 40 mg DAILY SC 07/23/24 10:00 07/23/24 10:01 Potassium Chloride 100 ml @ 50 mls/hr Q2H IV 07/23/24 05:45 07/23/24 09:44 DC 07/23/24 08:13 Amiodarone HCl 250 ml @ 33.333 mls/ hr Q7H30M IV 07/23/24 11:45 07/23/24 17:44 Flecainide Acetate (Tambocor Tablet) 50 mg Q12HR PO 07/23/24 22:00 Metoprolol Succinate (Toprol Xl) 25 mg DAILY PO 07/24/24 10:00 Review of Systems Seen and examined at the bedside. Patient reported improvement in his palpitations since admission, no new complaints reported at this time Vital Signs Vital Signs Date Time Temp Pulse Resp B/P (MAP) Pulse Ox O2 Delivery O2 Flow Rate FiO2 07/23/24 11:00 105/64 07/23/24 10:00 103 14 97 07/23/24 08:00 98.6 98.6 07/23/24 08:00 Room Air* 0 21 Physical Exam Pt is lying on bed General Appearance: Alert, Oriented X3, Cooperative, mild distress HEENT: Atraumatic, Mucous membranes moist/pink Respiratory: Clear to auscultation, Normal air movement, No added sounds Cardiovascular: Irregular regular rate, Normal S1, Normal S2, No murmurs Abdominal: Active bowel sounds, Soft, no distention, no tenderness Extremities: No edema, Normal pulses, No tenderness/swelling Skin: No Significant rash Neuro: Normal speech, sensorimotor deficits none Psych/Mental Status: Mental status NL, Mood NL Nurse was there as sharperone during examination Labs/Diagnostic Data Labs Test 07/23/24 04:48 07/23/24 04:02 07/23/24 03:56 Range/Units Troponin I High Sensitivity 3 L </=54 ng/L Urine Color Light-yellow Yellow Urine Clarity Clear Clear Urine pH 5.5 5.0-9.0 Urine Specific [place] 1.015 1.001-1.035 Urine Protein Negative Negative Urine Ketones Negative Negative Urine Blood Negative Negative /uL Urine Nitrite Negative Negative Urine Bilirubin Negative Negative Urine Urobilinogen Normal Negative mg/dL Urine Leukocyte Esterase Negative Negative /uL Urine RBC <1 0 - 3 /hpf Urine WBC 1 0 - 3 /hpf Urine Squamous Epithelial Cells Few <5 /hpf Urine Bacteria None seen None Seen /hpf Urine Glucose Normal Normal mg/dL Urine Opiates Screen Neg NEGATIVE Urine Fentanyl Screen Neg NEGATIVE Urine Barbiturates Screen Neg NEGATIVE Urine Phencyclidine Screen Neg NEGATIVE Urine Amphetamines Screen Neg NEGATIVE Urine Benzodiazepines Screen Neg NEGATIVE Urine Cocaine Screen Neg NEGATIVE Urine Cannabinoids Screen Neg NEGATIVE White Blood Count 9.8 4.4-10.8 10^3/uL Red Blood Count 5.01 4.5-5.90 10^6/uL Hemoglobin 16.2 13.5-17.5 g/dL Hematocrit 46.7 41.0-53.0 % Mean Corpuscular Volume 93.3 80.0-100.0 fL Mean Corpuscular Hemoglobin 32.4 H 28.0-32.0 pg Mean Corpuscular Hemoglobin Concent 34.8 32.0-36.0 g/dL Red Cell Distribution Width 12.7 11.8-14.3 % Platelet Count 296 140-450 10^3/uL Mean Platelet Volume 7.2 6.9-10.8 fL Neutrophils (%) (Auto) 57.5 37.0-80.0 % Lymphocytes (%) (Auto) 30.4 10.0-50.0 % Monocytes (%) (Auto) 8.6 0.0-12.0 % Eosinophils (%) (Auto) 2.5 0.0-7.0 % Basophils (%) (Auto) 1.0 0.0-2.0 % Neutrophils # (Auto) 5.6 1.6-8.6 10 ^3/uL Lymphocytes # (Auto) 3.0 0.4-5.4 10 ^3/uL Monocytes # (Auto) 0.8 0-1.3 10 ^3/uL Eosinophils # (Auto) 0.2 0-0.8 10 ^3/uL Basophils # (Auto) 0.1 0-0.2 10 ^3/uL Nucleated Red Blood Cells 0.1 % Prothrombin Time 10.4 9.3-11.8 sec Prothrombin Time INR 0.98 0.9-1.15 Sodium Level 140 136-145 mmol/L Potassium Level 3.7 3.5-5.1 mmol/L Chloride Level 107 98-107 mmol/L Carbon Dioxide Level 24 20-31 mmol/L Anion Gap 9 5-15 Blood Urea Nitrogen 12 9-23 mg/dL Creatinine 1.21 0.700-1.30 mg/dL Glomerular Filtration Rate Calc 82 >90 mL/min BUN/Creatinine Ratio 9.9 L 10.0-20.0 Serum Glucose 139 H 74-106 mg/dL Calcium Level 10.1 8.7-10.4 mg/dL Magnesium Level 1.9 1.6-2.6 mg/dL Total Bilirubin 0.9 0.2-1.0 mg/dL Aspartate Amino Transferase (AST) 40 13-40 U/L Alanine Aminotransferase (ALT) 90 H 7-40 U/L Alkaline Phosphatase 80 46-116 U/L B-Type Natriuretic Peptide 2.88 0-100 pg/mL Total Protein 7.6 5.7-8.2 g/dL Albumin 4.8 3.2-4.8 g/dL Triglycerides Level 133 < 150 mg/dL Cholesterol Level 168 < 200 mg/dL LDL Cholesterol 114 H < 100 mg/dL HDL Cholesterol 40 40-59 mg/dL Thyroid Stimulating Hormone (TSH) 4.25 0.55-4.78 uIU/mL Free Thyroxine (T4) Calculated 1.19 0.89-1.76 ng/dL Plasma/Serum Blood Alcohol < 3.0 <10 mg/dL Assessment Paroxysmal AFib with RVR class-IIIA with a secondary hypercoagulable state Transaminitis Plan/Recommendation We will continue with the following plan/recommendations (Dr. Torres): Continue monitoring on telemetry unit, notify if any changes in EKG Echocardiogram to evaluate cardiac function Discontinued Cardizem, started on amiodarone drip along with flecainide 50 mg b.i.d., metoprolol 25 mg along with Eliquis 5mg Risk factor modification Case discussed with Dr Garcia, patient and RN. Plan discussed with: Patient, Spouse Visit Coding Cardiology RES Date of Service: Jul 23, 2024 Billing Provider: ALLISON GACRIA MD Cardiology Common Codes: [id number] INP/OBS CARE (Mod) OSKAR JUAN RESIDENT Jul 23, 2024 12:01
--- NOTE | 2024-07-23 12:59 | DVHPNRES ---
Progress Note Date Seen: Jul 23, 2024 Resident Creating Document: KRANTHI HOOD RESIDENT Medical Necessity Reason Pt with a Central, PICC or Fol: No Subjective Review of Systems 29 year Male patient with past medical history of SVT presented with complaint of shortness of breath associated feeling of suffocation palpitation started 0330 in the morning.. He was found to be on AFib with RVR and was started on diltiazem drip. Currently patient is asymptomatic, mentioning of occasional skipping heartbeat, heart rate is 110s to 120s on diltiazem. Later diltiazem was discontinued by the training administrator and patient was started on amiodarone by the training administrator. ROS Constitutional: No: Fever, Chills, Sweats, Weakness, Malaise, Other Eyes: No: Pain, Vision change, Conjunctivae inflammation, Eyelid inflammation, Other, Redness ENT: No: Ear pain, Ear discharge, Nose pain, Nose discharge, Nose congestion, Mouth pain, Mouth swelling, Throat pain, Throat swelling, Other Respiratory: No: Cough, Dry, Shortness of breath, SOB with excertion, Wheezing, Hemoptysis, Pleuritic Pain, Sputum, Wheezing, Other Cardiovascular: Palpitations No: Chest Pain, Palpitations, Orthopnea, Paroxysmal Noc. Dyspnea, Edema, Lt Headedness, Other Gastrointestinal: No: Nausea, Vomiting, Abdominal Pain, Diarrhea, Constipation, Melena, Hematochezia, Other Musculoskeletal: No: other, neck pain, shoulder pain, arm pain, back pain, hand pain, leg pain, foot pain Neurological:; No: Weakness, Numbness, Incoordination, Change in speech, Confusion, Seizures Objective vital signs Vital Sign Date Time Temp Pulse Resp B/P (MAP) Pulse Ox O2 Delivery O2 Flow Rate FiO2 07/23/24 11:55 99 104/67 07/23/24 10:00 14 97 07/23/24 08:00 98.6 98.6 07/23/24 08:00 Room Air* 0 21 Total Intake and Output 07/22/24 07/22/24 07/23/24 15:00 23:00 07:00 Intake Total 79.66 ml Balance 79.66 ml medications Current Medications Medications Dose Ordered Sig/Sondra Route Start Time Stop Time Status Last Admin Dose Admin Sodium Chloride 10 ml Q8HR IV 07/23/24 06:00 Ondansetron HCl 4 mg Q4HP PRN IV 07/23/24 05:00 Acetaminophen 650 mg Q6HP PRN PO 07/23/24 05:00 Nitroglycerin 0.4 mg Q5MINP PRN SL 07/23/24 05:00 Morphine Sulfate 2 mg Q30M PRN IV 07/23/24 05:00 Amiodarone HCl 250 ml @ 33.333 mls/ hr Q7H30M IV 07/23/24 11:45 07/23/24 17:44 07/23/24 11:51 33.333 MLS/HR Flecainide Acetate 50 mg Q12HR PO 07/23/24 22:00 Metoprolol Succinate 25 mg DAILY PO 07/24/24 10:00 Apixaban 5 mg BID PO 07/23/24 22:00 Examination Examination General Appearance: Alert, Oriented X3, Cooperative, No acute distress HEENT: EOMI Respiratory: Clear to auscultation, Normal air movement Cardiovascular: Irregular heart rate, Normal S1, Normal S2 Abdominal: Normal bowel sounds Extremities: No cyanosis, No edema, Normal pulses, No tenderness/swelling Skin: No rashes, No breakdown Neuro: Normal speech and tone laboratory and microbiology Laboratory Tests 07/23/24 03:56 Test 07/23/24 03:56 Range/Units Serum Glucose 139 H 74-106 mg/dL Labs and/or images reviewed: Labs reviewed by me, Image(s) reviewed by me Problem List/Assessment/Plan Problem List/Assessment/Plan Assessment/plan # atrial fibrillation with RVR, questionable new onset questionable paroxysmal, history of SVT -currently heart rate 110 to 120s on diltiazem drip -cardiology on board -echocardiogram -magnesium greater than two, potassium greater than four -Later diltiazem was discontinued by the training administrator and patient was started on amiodarone by the training administrator. -pt also started on metoprolol, eliquis 5mg BID -CHADS-VASc score is 0, discussed with the training administrator, as per training administrator continue with Eliquis -planned to be discharged on flecainide by the training administrator -echo pending #? Obstructive sleep apnea Outpatient follow up with sleep doctor for sleep study # history of SVT Code status discussed with the patient for greater than 21 minutes, full code Case discussion with Dr. Schmitt Plan discussed with: Patient, Other Date of Service: Jul 23, 2024 Billing Provider: ARNAUD SCHMITT MD Common Visit Codes: [id number] INP/OBS CARE(HIGH) KRANTHI HOOD RESIDENT Jul 23, 2024 12:59 ARNAUD SCHMITT MD Jul 24, 2024 17:32
[2024-07-23] MEDS: FLECAINIDE ACETATE 50 MG TAB PO ONE (13:11)
--- NOTE | 2024-07-23 13:52 | ECG ---
[facility] Test Date: 2024-07-23 Test Time: 04:04:33 Pat Name: KAYLYN GIBBONS Department: er Room: 0251T Gender: M [employer]: [id number] : 1995 Requested By: GERRI GLORIA Order Number: [id number] Reading MD: Nick Rosario Measurements Intervals [place] Rate: 112 P: 0 SD: 0 QRS: 42 QRSD: 106 T: 3 QT: 323 QTc: 441 Interpretive Statements Atrial fibrillation Electronically Signed On 07-23-2024 16:47:29 PST by Nick Rosario Please click the below link to view image of tracing.
[2024-07-23 15:40] VITALS: BP 115/67; PULSE 99; RESP 16; TEMP 98.2; O2SAT 98
[2024-07-23 17:02] VITALS: BP 106/74; PULSE 101; RESP 15; TEMP 98; O2SAT 98
--- NOTE | 2024-07-23 19:59 | DVHSR ---
APPROVED REPORT EXAM: LIMITED Two-dimensional and M-mode echocardiogram with Doppler and color Doppler. Blood Pressure: 103/57 mmHg INDICATION Atrial Fibrillation W/ RVR RISK FACTORS Obesity: Height: 6' 2", Weight: 288 DIMENSIONS LVDd5.2 (3.8-5.7cm)LA (2D)3.8 (1.9-4.0cm)Aortic Root3.6 (2.0-3.7cm) LVDs3.7 (2.5-4.0cm)LA (MM) (1.9-4.0cm)Aortic Cusp Exc2.0 (1.5-2.0cm) EF (%) 55.0 (55-70%)Rt. Atrium (1.9-4.0cm)Asc. Aorta cm IVSd1.2 (0.7-1.1cm)RV (D) (1.8-2.4cm) PWd0.9 (0.7-1.1cm) Mitral Valve MitralMitral Stenosis E wave1.00m/sMV Mean GR.mmHg E/A ratio0.02D MVAcm2 Aortic Valve Aortic ValveAortic Stenosis V10.90m/Fady Mean GR.5mmHg V21.40m/Fady Peak GR.8mmHg LVOT Diameter2.4 (1.8-2.4cm)Doppler AVA2.91cm2 Other Information Quality : Rhythm : Atrial Fibrillation Conclusion LV EJECTION FRACTION OF 70% NORMAL VALVES NO EFFUSION NORMAL RV FUNCTION HYPERDYNAMIC LV
[2024-07-23 20:00] VITALS: PULSE 85
[2024-07-23 21:00] VITALS: BP 114/65; PULSE 97; RESP 20; TEMP 98.2; O2SAT 94
[2024-07-23] MEDS ORDERED: FLECAINIDE ACETATE 50 MG TAB PO SCH (22:00)
[2024-07-23] MEDS: APIXABAN 5 MG TAB PO SCH (23:30)
[2024-07-24] VITALS (8 sets, daily range): BP systolic 106–121; BP diastolic 66–76; PULSE 76–96; RESP 16–20; TEMP 98–98.7; O2SAT 94–99
[2024-07-24] MEDS: METOPROLOL SUCCINATE XL 50 MG TAB PO SCH (10:32)
[2024-07-24 10:40] LABS: Basophils # (auto) 0.1 10 ^3/uL (0-0.2); Basophils % (auto) 0.6 % (0.0-2.0); Eosinophils # (auto) 0.1 10 ^3/uL (0-0.8); Hematocrit 46.7 % (41.0-53.0); Hemoglobin 16.1 g/dL (13.5-17.5); Lymphocytes # (auto) 2.8 10 ^3/uL (0.4-5.4); Lymphocytes % (auto) 24.7 % (10.0-50.0); Mean Corpuscular Hemoglobin 32.2 pg (28.0-32.0); Mean Corpuscular Hgb Conc. 34.5 g/dL (32.0-36.0); Mean Corpuscular Volume 93.1 fL (80.0-100.0); Monocytes # (auto) 0.9 10 ^3/uL (0-1.3); Neutrophils # (auto) 7.6 10 ^3/uL (1.6-8.6); Neutrophils % (auto) 65.7 % (37.0-80.0); Nucleated Red Blood Cells % 0.1 %; Platelet Count (auto) 299 10^3/uL (140-450); Red Blood Cells 5.02 10^6/uL (4.5-5.90); Red Cell Distribution Width 13.1 % (11.8-14.3); White Blood Cell 11.5 10^3/uL (4.4-10.8)
[2024-07-24 10:47] LABS: Potassium 3.9 mmol/L (3.5-5.1); Sodium 139 mmol/L (136-145)
[2024-07-24 10:48] LABS: Anion Gap 7 (5-15); Calcium 10.2 mg/dL (8.7-10.4); Carbon Dioxide 24 mmol/L (20-31)
[2024-07-24 10:53] LABS: BUN/Creatinine Ratio 11.5 (10.0-20.0); Blood Urea Nitrogen 12 mg/dL (9-23); Magnesium 2.1 mg/dL (1.6-2.6)
[2024-07-24 11:02] LABS: Chloride 108 mmol/L (98-107); Glucose 114 mg/dL (74-106)
--- NOTE | 2024-07-24 14:38 | DVHDSRES ---
Discharge Summary Date of Admission Resident Creating Document: KRANTHI HOOD Jul 23, 2024 at 05:00 Labs/Diagnostic Data: Laboratory Results Test 07/24/24 10:20 07/23/24 04:48 07/23/24 04:02 07/23/24 03:56 White Blood Count 11.5 10^3/uL (4.4-10.8) Red Blood Count 5.02 10^6/uL (4.5-5.90) Hemoglobin 16.1 g/dL (13.5-17.5) Hematocrit 46.7 % (41.0-53.0) Mean Corpuscular Volume 93.1 fL (80.0-100.0) Mean Corpuscular Hemoglobin 32.2 pg (28.0-32.0) Mean Corpuscular Hemoglobin Concent 34.5 g/dL (32.0-36.0) Red Cell Distribution Width 13.1 % (11.8-14.3) Platelet Count 299 10^3/uL (140-450) Mean Platelet Volume 7.2 fL (6.9-10.8) Neutrophils (%) (Auto) 65.7 % (37.0-80.0) Lymphocytes (%) (Auto) 24.7 % (10.0-50.0) Monocytes (%) (Auto) 8.0 % (0.0-12.0) Eosinophils (%) (Auto) 1.0 % (0.0-7.0) Basophils (%) (Auto) 0.6 % (0.0-2.0) Neutrophils # (Auto) 7.6 10 ^3/uL (1.6-8.6) Lymphocytes # (Auto) 2.8 10 ^3/uL (0.4-5.4) Monocytes # (Auto) 0.9 10 ^3/uL (0-1.3) Eosinophils # (Auto) 0.1 10 ^3/uL (0-0.8) Basophils # (Auto) 0.1 10 ^3/uL (0-0.2) Nucleated Red Blood Cells 0.1 % Sodium Level 139 mmol/L (136-145) Potassium Level 3.9 mmol/L (3.5-5.1) Chloride Level 108 mmol/L (98-107) Carbon Dioxide Level 24 mmol/L (20-31) Anion Gap 7 (5-15) Blood Urea Nitrogen 12 mg/dL (9-23) Creatinine 1.04 mg/dL (0.700-1.30) Glomerular Filtration Rate Calc 98 mL/min (>90) BUN/Creatinine Ratio 11.5 (10.0-20.0) Serum Glucose 114 mg/dL (74-106) Calcium Level 10.2 mg/dL (8.7-10.4) Magnesium Level 2.1 mg/dL (1.6-2.6) Troponin I High Sensitivity 3 ng/L (</=54) Urine Color Light-yellow (Yellow) Urine Clarity Clear (Clear) Urine pH 5.5 (5.0-9.0) Urine Specific [place] 1.015 (1.001-1.035) Urine Protein Negative (Negative) Urine Ketones Negative (Negative) Urine Blood Negative /uL (Negative) Urine Nitrite Negative (Negative) Urine Bilirubin Negative (Negative) Urine Urobilinogen Normal mg/dL (Negative) Urine Leukocyte Esterase Negative /uL (Negative) Urine RBC <1 /hpf (0 - 3) Urine WBC 1 /hpf (0 - 3) Urine Squamous Epithelial Cells Few /hpf (<5) Urine Bacteria None seen /hpf (None Seen) Urine Glucose Normal mg/dL (Normal) Urine Opiates Screen Neg (NEGATIVE) Urine Fentanyl Screen Neg (NEGATIVE) Urine Barbiturates Screen Neg (NEGATIVE) Urine Phencyclidine Screen Neg (NEGATIVE) Urine Amphetamines Screen Neg (NEGATIVE) Urine Benzodiazepines Screen Neg (NEGATIVE) Urine Cocaine Screen Neg (NEGATIVE) Urine Cannabinoids Screen Neg (NEGATIVE) Prothrombin Time 10.4 sec (9.3-11.8) Prothrombin Time INR 0.98 (0.9-1.15) Total Bilirubin 0.9 mg/dL (0.2-1.0) Aspartate Amino Transferase (AST) 40 U/L (13-40) Alanine Aminotransferase (ALT) 90 U/L (7-40) Alkaline Phosphatase 80 U/L (46-116) B-Type Natriuretic Peptide 2.88 pg/mL (0-100) Total Protein 7.6 g/dL (5.7-8.2) Albumin 4.8 g/dL (3.2-4.8) Triglycerides Level 133 mg/dL (< 150) Cholesterol Level 168 mg/dL (< 200) LDL Cholesterol 114 mg/dL (< 100) HDL Cholesterol 40 mg/dL (40-59) Thyroid Stimulating Hormone (TSH) 4.25 uIU/mL (0.55-4.78) Free Thyroxine (T4) Calculated 1.19 ng/dL (0.89-1.76) Plasma/Serum Blood Alcohol < 3.0 mg/dL (<10) Other Laboratory Tests 07/24/24 10:20 Discharge Statement: "Patient was advised to return to the ER or call 911 if any headaches, dizziness, shortness of breath, chest pain, abdominal pain, bleeding, fevers, or worsening of medical condition. Patient was counseled about treatment plan, medications, possible side effects, patientverbalized understanding. All questions were answered to the best of my ability. This discharge took greater then 30 minutes in planning, reviewing documentation, counseling the patient, and discussing with other team members." ASSESSMENT ASSESSMENT Assessment KRANTHI HOOD RESIDENT Jul 24, 2024 14:38
--- NOTE | 2024-07-24 14:39 | DVHPNRES ---
Progress Note Date Seen: Jul 24, 2024 Resident Creating Document: KRANTHI HOOD RESIDENT Medical Necessity Reason Pt with a Central, PICC or Fol: No Subjective Review of Systems Patient seen and examined at bedside. He is currently asymptomatic. He was having heart rate of 80s on amiodarone drip. Later in the hospital, amiodarone drip was discontinued by the production clerk and was started on flecainide. Objective vital signs Vital Sign Date Time Temp Pulse Resp B/P (MAP) Pulse Ox O2 Delivery O2 Flow Rate FiO2 07/24/24 13:00 98.6 84 16 112/72 (85) 95 98.6 07/24/24 08:00 Room Air* 0 21 Total Intake and Output 07/23/24 07/23/24 07/24/24 15:00 23:00 07:00 Intake Total 8 ml 800 ml Output Total 0 ml Balance 8 ml 800 ml medications Current Medications Medications Dose Ordered Sig/Sondra Route Start Time Stop Time Status Last Admin Dose Admin Sodium Chloride 10 ml Q8HR IV 07/23/24 06:00 07/24/24 13:30 10 ML Acetaminophen 650 mg Q6HP PRN PO 07/23/24 05:00 Metoprolol Succinate 25 mg DAILY PO 07/24/24 10:00 07/24/24 10:32 25 MG Apixaban 5 mg BID PO 07/23/24 22:00 07/24/24 10:31 5 MG Flecainide Acetate 50 mg Q12HR PO 07/24/24 22:00 Examination Examination General Appearance: Alert, Oriented X3, Cooperative, No acute distress HEENT: EOMI Respiratory: Clear to auscultation, Normal air movement Cardiovascular: Regular rate, Normal S1, Normal S2 Abdominal: Normal bowel sounds Extremities: No cyanosis, No edema, Normal pulses, No tenderness/swelling Skin: No rashes, No breakdown Neuro: Normal speech and tone laboratory and microbiology Laboratory Tests 07/24/24 10:20 Test 07/24/24 10:20 Range/Units Serum Glucose 114 H 74-106 mg/dL Labs and/or images reviewed: Labs reviewed by me, Image(s) reviewed by me Problem List/Assessment/Plan Problem List/Assessment/Plan Assessment/plan # atrial fibrillation with RVR, questionable new onset questionable paroxysmal, history of SVT -cardiology on board -echocardiogram -magnesium greater than two, potassium greater than four -pt also started on metoprolol, eliquis 5mg BID -CHADS-VASc score is 0, discussed with the production clerk, as per production clerk continue with Eliquis -planned to be discharged on flecainide by the production clerk -echo 70% ejection fraction Later in the hospital, amiodarone drip was discontinued by the production clerk and was started on flecainide. #? Obstructive sleep apnea Outpatient follow up with sleep doctor for sleep study # history of SVT Code status discussed with the patient for greater than 21 minutes, full code Case discussion with Dr. Puentes Plan discussed with: Patient, Other Date of Service: Jul 24, 2024 Billing Provider: TRES PUENTES MD Common Visit Codes: [id number] INP/OBS CARE(HIGH) KRANTHI HOOD RESIDENT Jul 24, 2024 14:39 TRES PUENTES MD Jul 24, 2024 22:00
[2024-07-24] MEDS: FLECAINIDE ACETATE 50 MG TAB PO ONE (14:48)
[2024-07-24] MEDS: FLECAINIDE ACETATE 50 MG TAB PO SCH (22:19)
[2024-07-25 01:00] VITALS: BP 108/70; PULSE 82; RESP 20; TEMP 98.8; O2SAT 100
[2024-07-25 05:00] VITALS: BP 110/70; PULSE 88; RESP 20; TEMP 98.8; O2SAT 18
[2024-07-25 08:00] VITALS: PULSE 78
[2024-07-25 08:10] VITALS: BP 102/72; PULSE 64; RESP 18; TEMP 98.7; O2SAT 97
[2024-07-25] MEDS ORDERED: METO25TA93 PO (11:01)
[2024-07-25] MEDS ORDERED: FLEC1TAB PO (11:01)
[2024-07-25] MEDS ORDERED: APIX5TAB PO (11:01)
[2024-07-25 12:01] VITALS: BP 110/71; PULSE 92; RESP 16; TEMP 98.6; O2SAT 98
--- NOTE | 2024-07-25 12:18 | DVHDSRES ---
Discharge Summary Date of Admission Resident Creating Document: TAZ FRAIRE RESIDENT Jul 23, 2024 at 05:00 Date of Discharge: Jul 25, 2024 Admitting Diagnosis Dyspnea, palpitation Labs/Diagnostic Data: Laboratory Results Test 07/24/24 10:20 07/23/24 04:48 07/23/24 04:02 07/23/24 03:56 White Blood Count 11.5 10^3/uL (4.4-10.8) Red Blood Count 5.02 10^6/uL (4.5-5.90) Hemoglobin 16.1 g/dL (13.5-17.5) Hematocrit 46.7 % (41.0-53.0) Mean Corpuscular Volume 93.1 fL (80.0-100.0) Mean Corpuscular Hemoglobin 32.2 pg (28.0-32.0) Mean Corpuscular Hemoglobin Concent 34.5 g/dL (32.0-36.0) Red Cell Distribution Width 13.1 % (11.8-14.3) Platelet Count 299 10^3/uL (140-450) Mean Platelet Volume 7.2 fL (6.9-10.8) Neutrophils (%) (Auto) 65.7 % (37.0-80.0) Lymphocytes (%) (Auto) 24.7 % (10.0-50.0) Monocytes (%) (Auto) 8.0 % (0.0-12.0) Eosinophils (%) (Auto) 1.0 % (0.0-7.0) Basophils (%) (Auto) 0.6 % (0.0-2.0) Neutrophils # (Auto) 7.6 10 ^3/uL (1.6-8.6) Lymphocytes # (Auto) 2.8 10 ^3/uL (0.4-5.4) Monocytes # (Auto) 0.9 10 ^3/uL (0-1.3) Eosinophils # (Auto) 0.1 10 ^3/uL (0-0.8) Basophils # (Auto) 0.1 10 ^3/uL (0-0.2) Nucleated Red Blood Cells 0.1 % Sodium Level 139 mmol/L (136-145) Potassium Level 3.9 mmol/L (3.5-5.1) Chloride Level 108 mmol/L (98-107) Carbon Dioxide Level 24 mmol/L (20-31) Anion Gap 7 (5-15) Blood Urea Nitrogen 12 mg/dL (9-23) Creatinine 1.04 mg/dL (0.700-1.30) Glomerular Filtration Rate Calc 98 mL/min (>90) BUN/Creatinine Ratio 11.5 (10.0-20.0) Serum Glucose 114 mg/dL (74-106) Calcium Level 10.2 mg/dL (8.7-10.4) Magnesium Level 2.1 mg/dL (1.6-2.6) Troponin I High Sensitivity 3 ng/L (</=54) Urine Color Light-yellow (Yellow) Urine Clarity Clear (Clear) Urine pH 5.5 (5.0-9.0) Urine Specific [place] 1.015 (1.001-1.035) Urine Protein Negative (Negative) Urine Ketones Negative (Negative) Urine Blood Negative /uL (Negative) Urine Nitrite Negative (Negative) Urine Bilirubin Negative (Negative) Urine Urobilinogen Normal mg/dL (Negative) Urine Leukocyte Esterase Negative /uL (Negative) Urine RBC <1 /hpf (0 - 3) Urine WBC 1 /hpf (0 - 3) Urine Squamous Epithelial Cells Few /hpf (<5) Urine Bacteria None seen /hpf (None Seen) Urine Glucose Normal mg/dL (Normal) Urine Opiates Screen Neg (NEGATIVE) Urine Fentanyl Screen Neg (NEGATIVE) Urine Barbiturates Screen Neg (NEGATIVE) Urine Phencyclidine Screen Neg (NEGATIVE) Urine Amphetamines Screen Neg (NEGATIVE) Urine Benzodiazepines Screen Neg (NEGATIVE) Urine Cocaine Screen Neg (NEGATIVE) Urine Cannabinoids Screen Neg (NEGATIVE) Prothrombin Time 10.4 sec (9.3-11.8) Prothrombin Time INR 0.98 (0.9-1.15) Total Bilirubin 0.9 mg/dL (0.2-1.0) Aspartate Amino Transferase (AST) 40 U/L (13-40) Alanine Aminotransferase (ALT) 90 U/L (7-40) Alkaline Phosphatase 80 U/L (46-116) B-Type Natriuretic Peptide 2.88 pg/mL (0-100) Total Protein 7.6 g/dL (5.7-8.2) Albumin 4.8 g/dL (3.2-4.8) Triglycerides Level 133 mg/dL (< 150) Cholesterol Level 168 mg/dL (< 200) LDL Cholesterol 114 mg/dL (< 100) HDL Cholesterol 40 mg/dL (40-59) Thyroid Stimulating Hormone (TSH) 4.25 uIU/mL (0.55-4.78) Free Thyroxine (T4) Calculated 1.19 ng/dL (0.89-1.76) Plasma/Serum Blood Alcohol < 3.0 mg/dL (<10) Other Laboratory Tests 07/24/24 10:20 Brief Hx & Hospital Course: 29 year Male patient with past medical history of SVT presented with complaint of shortness of breath associated feeling of suffocation palpitation started 0330 in the morning.. He was found to be on AFib with RVR and was started on diltiazem drip. Later diltiazem was discontinued by the extrusion die corrector and patient was started on amiodarone by the extrusion die corrector. Amiodarone was discontinued on day 2 of hospitalization as patient was in sinus rhythm,and patient was maintained on flecainide 50 mg b.i.d.. On the day of discharge, patient appeared well and had stable vital signs, pulse was within normal limits. EKG done on the day of discharge showed sinus rhythm. Patient was prescribed metoprolol 25 mg p.o. daily, flecainide 50 mg p.o. b.i.d., Eliquis 5 mg b.i.d. for 28 days only. Patient was instructed to follow up with his PCP and extrusion die corrector in the outpatient clinic in 1-2 weeks. His hospital course was uncomplicated. General Appearance: Cooperative. Well developed. Well nourished. NAD Head Exam: Normal inspection Neck Exam: Normal inspection. Non-tender. Normal alignment Pulmonary/Respiratory: Chest non-tender. Clear bilateral breath sounds, no crackles, no wheezing. Cardiovascular/Chest: Regular rate and rhythm. No murmurs. No JVD. Peripheral Pulses: 2+ Radial (R). 2+ Radial (L). 2+ Pedal (R). 2+ Pedal (L) Abdominal Exam: Normal bowel sounds. Soft. normal abdomen, no visible veins, Nontender. No hepatospenomegaly. No masses Ankle Exam: Negative ankle edema Lower extremities: Negative lower extremity edema Neuro/Mental Status: A&O x4. Coherent. Thoughts/Psych: Normal thought pattern. Appropriate mood and affect. Good judgement and insight Skin Exam: Normal inspection. Normal color. Warm. Dry Consults/Reason for consult Cardiology-AFib with RVR Condition at Discharge: Good Final Diagnosis/Problems List atrial fibrillation with RVR, questionable new onset questionable paroxysmal, history of SVT Obstructive sleep apnea history of SVT Discharge Disposition: Home Discharge Instruct/Medications Diet: Cardiac 2g Na,low cholest Activity: No Restrictions, As Tolerated Follow Up/Referral: Please follow up with PCP in 1-2 weeks Please follow up with Cardiology in the outpatient clinic Scheduled for DC clinic Medications: Apixaban 5 mg 2 times a day for 28 days only Metoprolol succinate 25 mg once daily Flecainide 50 mg twice a day Discharge Statement: "Patient was advised to return to the ER or call 911 if any headaches, dizziness, shortness of breath, chest pain, abdominal pain, bleeding, fevers, or worsening of medical condition. Patient was counseled about treatment plan, medications, possible side effects, patientverbalized understanding. All questions were answered to the best of my ability. This discharge took greater then 30 minutes in planning, reviewing documentation, counseling the patient, and discussing with other team members." ASSESSMENT ASSESSMENT Assessment atrial fibrillation with RVR, questionable new onset questionable paroxysmal, history of SVT Obstructive sleep apnea history of SVT Date of Service: Jul 25, 2024 Billing Provider: TRES GILMORE MD Common Visit Codes: 83898-MLC/OBS DISCH DAY >30min TAZ FRAIRE Jul 25, 2024 12:18 TRES GILMORE MD Jul 25, 2024 21:45
[2024-07-25 13:58] VITALS: BP 117/77; PULSE 93
== END 2024-07-25 15:34 | disposition home or self-care (01) | DRG 201 ==
LOC: ER 02:48 → TELE 05:00 → TELE-EAST 15:17
PROVIDERS: ADMIT Student in an Organized Health Care Education/Training Program; ATTEND Emergency Medicine
DX: I48.0 Paroxysmal atrial fibrillation (principal); G47.33 Obstructive sleep apnea (adult) (pediatric); R74.01 Elevation of levels of liver transaminase levels; Z79.899 Other long term (current) drug therapy; Z83.6 Family history of other diseases of the respiratory system; Z80.3 Family history of malignant neoplasm of breast; Z81.8 Family history of other mental and behavioral disorders; Z82.49 Family history of ischemic heart disease and other diseases of the circulatory system; Z79.01 Long term (current) use of anticoagulants
CPT/HCPCS: 36415; 71045; 80048; 80053; 80061; 80307; 80320; 81001; 83735; 83880; 84439; 84443; 84484; 85025; 85610; 93005; 93306; 99291; G0378; J0153; J2003; J3480